=== PATIENT | female | born 1975 | race Two or more races ===

== ENCOUNTER → 2019-03-15 | Outpatient (CLI) | payer OTHER ==
--- NOTE | 2019-03-16 08:59 | RADIOLOGY REPORT (SQ) ---
EXAM DESCRIPTION: MRI PELVIS WITHOUT COMPLETED DATE/TIME: 03/15/2019 3:52 pm REASON FOR STUDY: DUB COMPARISON: No direct comparison imaging. Correlated with an outside pelvic ultrasound report which appears to have been performed elsewhere, 01/08/2019. These images are not available for direct revi ew. TECHNIQUE: Multiplanar multisequence imaging performed without contrast including axial, sagittal an d coronal T2, axial T1, sagittal inversion recovery. LIMITATIONS: None. FINDINGS: BLADDER AND URETHRA: No focal bladder wall thickening or nodularity. Smooth mucosa. The urethra has smooth contour with no focal asymmetry. No focal lesions. PELVIC SOFT TISSUES: Small iliac chain and pelvic sidewall nodes, not enlarged. UTERUS: Normal size. No masses. Junctional zone normal. RIGHT OVARY: 2.9 cm transverse dimension ovoid slightly irregularly marginated partially hyperintense T2 mass consistent with a cyst. There is complicating hyperintense T1 material within the lesion, l ikely hemorrhage. Discrete from the ovary and lying in the right lower quadrant is a sizable well-ci rcumscribed hyperintense T2 mass consistent with a simple cystic lesion. This measures just under 8 cm transverse dimension by 10 cm craniocaudal. LEFT OVARY: 1.8 cm dominant follicle or cyst without suspicious features. FREE FLUID: None. PELVIC SKELETAL STRUCTURES: No abnormal marrow signal. EXTRA PELVIS SOFT TISSUES: No masses. OTHER: No other significant finding. IMPRESSION: 1. Suspect a hemorrhagic cyst related to the right ovary. Presumably this was the lesions seen on [facility] from December. If so, the lesion has not resolved and further clinical followup may be warranted. Despite difficulties with limited visualization, followup ultrasound at the very least is warranted. 2. Sizable cyst in the right lower quadrant. Unclear if this is of ovarian origin. The mass looks r elatively simple in appearance, however. If the patient has in the right lower quadrant symptoms, gonsalves rgical referral may be appropriate. TECHNICAL DOCUMENTATION: JOB ID: [id number] [facility]- All Rights Reserved Reading location - IP/workstation name: ROOM SERVICE FOOD SERVICE [email or web address]
== END ==
LOC: RAD 15:03
PROVIDERS: ATTEND Physician Assistant Medical
DX: N93.8 Other specified abnormal uterine and vaginal bleeding (principal); N83.292 Other ovarian cyst, left side; N83.291 Other ovarian cyst, right side
CPT/HCPCS: 72195